=== PATIENT | male | born 1955 | race Caucasian/White ===

== ENCOUNTER 2021-04-27 12:31 | Emergency (ER) | payer MEDICARE, SELFPAY ==
[2021-04-27 12:49] VITALS: BP 124/79; PULSE 82; RESP 18; TEMP 36.8; O2SAT 99; BMI 23.3
--- NOTE | 2021-04-27 14:07 | ED_ITS ---
HPI - General Adult General: Chief complaint: General Medical Stated complaint: rash on both legs Time Seen by Provider: 04/27/21 14:07 Source: patient Mode of arrival: ambulatory Limitations: no limitations History of Present Illness: HPI narrative: 66-year-old male presents to the ER today with family member after [facility]. Caregiver reports patient has leg wounds which they have been caring for for quite some time while he was in custody. Patient reports this all started after a scabies outbreak several years ago. Patient reports he has very poor healing in his lower legs due to decreased blood flow. Patient reports he was having 3 times weekly wound care while in longterm. At this time he has no pain. They have not removed dressings since he returned home. Patient does not have a PCP or wound care set up. Onset (ago): year(s) Location: lower extremity Review of Systems General: Reports: 10 or more systems reviewed and unremarkable except in HPI a nd below Physical Exam Const: COMMON NORMALS: no acute distress, average body habitus and patient breana ented x3 GENERAL APPEARANCE: cooperative, comfortable and frail appearing Eye: COMMON NORMALS: conjunctivae normal CONJUNCTIVA: Yes conjunctivae normal Resp: COMMON NORMALS: normal respiratory effort EFFORT & INSPECTION: Yes able to speak in complete sentences Cardio: COMMON NORMALS: regular rate and regular rhythm RATE: regular rate RHYTHM: regular rhythm Extremity: OTHER: Patient walks with a cane. Patient has a brace on the right foot. Left leg is noted to have healing chronic wounds. There is no acute infection at this time. Patient is also noted to have probable PAD vs PVD Neuro: COMMON NORMALS: patient oriented x3, moves all extremities and no sensory deficits noted Psych: COMMON NORMALS: mental status grossly normal, Normal thought process present and cooperative THOUGHT PROCESS: Normal thought process present Skin: OTHER: Patient has a 1 cm x 1 cm healing wound on the left lower extremity. This appears chronic at this time with no acute infection noted. There are scarred lesions noted to the left leg. Course ED course: Patient presents to the ER today for left leg wound. Patient was receiving wound care [facility] times daily [facility] and got out on Wednesday. Patient is currently in an Unna boot. This was removed in ER today. Wounds appear to be healing well at this time. We will set patient up with follow-up wound care and primary care. Vital Signs: Vital signs: Vital Signs Temperature 98.1 F 04/27/21 14:36 Pulse Rate 79 04/27/21 14:36 Respiratory Rate 18 04/27/21 14:36 Blood Pressure 125/77 04/27/21 14:36 Pulse Oximetry 99 04/27/21 14:36 MDM - General Adult MDM Narrative: Medical decision making narrative: 66-year-old male presents to the ER today for chronic left leg wound. Patient recently was discharged from the [facility] where he has been for the last several years. Patient was receiving 3 times weekly wound care while there. Patient has a history of peripheral artery versus peripheral vascular disease in his lower legs. Patient reports these wounds have been there for several years. Patient is needing a primary care doctor in addition to wound care. Care management consult placed. Wounds covered with nonstick dressing and Rainer bandage at this time. Return to the ER with new or worsening symptoms. Patient verbalized understanding and is in agreement with the treatment plan. Critical Care Time Critical Care Time: Critical Care Time: No Discharge Plan Discharge Patient Disposition: Home Clinical Impression: Chronic wound of extremity Condition: Stable Discharge Orders: Discharge ED (Routine); Ordered 04/27/21 Ordered By: Dedra Perdue Discharge Diet: Usual diet Discharge Activity: Resume usual activity Patient Instructions: Opioid Safety Activity Restrictions/Additional Instructions: Leave dressing until follow-up with wound care. Establish a PCP and follow-up. Return to the ER with new or worsening symptoms. Coding Level of Care Code ED Bow Rehairer for Alex Johnson
[2021-04-27 14:36] VITALS: BP 125/77; PULSE 79; RESP 18; TEMP 36.7; O2SAT 99
--- NOTE | 2021-06-03 12:07 | DCPLANNER ---
Addendum entered by Zoila Ray 06/12/21 13:46: Patient had a follow up appointment scheduled with Wound Care - patient did attend appointment. Original Note: Patients daughter called case resolution specialist about a referral to Wound Care. retail office manager called Wound Care, spoke with Shannon, gave clinic patients information. A follow up appointment was scheduled for , June 05, 2021 at 8:[address] Naylor. retail office manager gave patients daughter the appointment information.
== END 2021-04-27 14:38 | disposition home or self-care (01) ==
PROVIDERS: Emergency Provider Physician Assistant
DX: S81.802A Unspecified open wound, left lower leg, initial encounter (principal); X58.XXXA Exposure to other specified factors, initial encounter
CPT/HCPCS: 99282

== ENCOUNTER 2021-06-06 10:17 | Outpatient (CLI) | payer SELFPAY | END 2021-06-06 10:18 | disposition home or self-care (01) | LOC: WOUND 10:19 | PROVIDERS: Visit Provider Surgery | DX: L97.822 Non-pressure chronic ulcer of other part of left lower leg with fat layer exposed (principal); J44.9 Chronic obstructive pulmonary disease, unspecified; Z87.891 Personal history of nicotine dependence | CPT/HCPCS: 11042; 99213 ==

== ENCOUNTER → 2021-06-10 11:38 | Outpatient (BNVA) | payer SELFPAY | PROVIDERS: Visit Provider Family Medicine | DX: I73.9 Peripheral vascular disease, unspecified (principal); S81.809A Unspecified open wound, unspecified lower leg, initial encounter; I10 Essential (primary) hypertension; J44.9 Chronic obstructive pulmonary disease, unspecified; R35.89 Other polyuria; N40.0 Benign prostatic hyperplasia without lower urinary tract symptoms | CPT/HCPCS: 80053; 80061; 83036; 84153; 85025; 86803; 87806 ==

== ENCOUNTER 2021-06-13 08:33 | Outpatient (CLI) | payer SELFPAY | END 2021-06-13 08:34 | disposition home or self-care (01) | LOC: WOUND 08:33 | PROVIDERS: Visit Provider Surgery | DX: L97.822 Non-pressure chronic ulcer of other part of left lower leg with fat layer exposed (principal); Z87.891 Personal history of nicotine dependence | CPT/HCPCS: 99212 ==

== ENCOUNTER 2021-08-12 06:18 | Outpatient (CLI) | payer SELFPAY ==
--- NOTE | 2021-08-12 06:26 | USCV_ITS ---
Fantasma Alcantar Age: 66 Gender: M : 1955 Exam Date: 08/12/2021 06:29 Ordering Phys: Arden Toro MD Technologist: DANIELLE [place] [facility] [place]: [place] pain Risk Factors: Previous Vascular Surgery: RIGHT LEFT BP: 145.0 / 90.00 BP: 150.0/ 90.00 0 0 Waveform Velocity (cm/s) Velocity (cm/s) Waveform Iliac Prox 95.9 Triphasic Iliac Mid 85.8 Triphasic Iliac Distal 109.4 Triphasic ENVIRONMENTAL MANAGER 92.6 Triphasic SFA Prox 90.3 Biphasic SFA Mid 71.8 Biphasic SFA Dist 71.8 Biphasic POP 48.0 Biphasic SUPERVISING DEPUTY 35.5 Biphasic DPA 35.3 Biphasic MOE 0.9 FINDINGS LT SUPERVISING DEPUTY 138 LT DPA 136 LT Brach 150/90 RT Brach 145/90 Slightly diminished resting MOE of 0.9 on the left side. CONCLUSIONS Features suggestive of mild peripheral artery disease on the left side. Dr Macrina Son MD FACC (Electronically Signed) Final Date: 12 Aug 2021 14:34 S
== END 2021-08-12 06:19 | disposition home or self-care (01) ==
LOC: RAD 06:19
PROVIDERS: Visit Provider Surgery
DX: L97.822 Non-pressure chronic ulcer of other part of left lower leg with fat layer exposed (principal); M79.662 Pain in left lower leg; I73.9 Peripheral vascular disease, unspecified
CPT/HCPCS: 93926

== ENCOUNTER 2021-09-06 11:20 | Emergency (ER) | payer SELFPAY ==
[2021-09-06 11:26] VITALS: BP 122/84; PULSE 83; RESP 16; TEMP 36.4; O2SAT 99; BMI 24.3
--- NOTE | 2021-09-06 13:12 | XRR_ITS ---
PROCEDURE INFORMATION: Exam: XR Chest Exam date and time: 09/06/2021 1:30 PM Age: 66 years old Clinical indication: Pain; Chest pressure; Additional info: Chest pain TECHNIQUE: Imaging protocol: XR of the chest. Views: 1 view. COMPARISON: No relevant prior studies available. FINDINGS: Lungs: Hyperinflated lungs. No consolidation. Pleural spaces: No pleural effusion. No pneumothorax. Heart/Mediastinum: No cardiomegaly. Bones/joints: Visualized osseous structures are intact. XR/XR chest 1V portable [id number] IMPRESSION: No acute findings.
[2021-09-06 13:16] VITALS: BP 110/84; PULSE 77; RESP 13; O2SAT 96
--- NOTE | 2021-09-06 13:36 | ECG_ITS ---
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 Measurements Intervals [place] Rate: 81 P: 81 SC: 134 QRS: -73 QRSD: 96 T: 85 QT: 358 QTc: 417 Interpretive Statements SINUS RHYTHM LEFT AXIS DEVIATION [QRS AXIS < -30] No previous ECG available for comparison Electronically Signed On 09-07-2021 20:38:38 CDT by Sai Garcia M.D. [email or web address] Therapeutics/store/OM/[id number]
[2021-09-06 13:40] LABS: Basophils # 0.1 10^3/uL (0.0-0.1); Basophils % 0.8 %; Eosinophils # 0.2 10^3/uL (0.0-0.8); Eosinophils % 1.7 %; Hematocrit 51.5 % (42.0-52.0); Hemoglobin 17.2 g/dL (11.7-16.6); Lymphocytes # 1.2 10^3/uL (0.8-4.8); Lymphocytes % 8.6 %; Mean Corpuscular HGB Conc 33.4 g/dL (30.0-36.0); Mean Corpuscular Hemoglobin 33.5 pg (28.0-34.0); Mean Corpuscular Volume 100.4 fl (80-94); Mean Platelet Volume 10.1 fL (7.4-10.4); Monocytes # 0.8 10^3/uL (0.2-0.9); Neutrophils # 11.27 10^3/uL (1.8-7.7); Neutrophils % 81.7 %; Nucleated Red Blood Cells % 0 %; Platelet Count 183 10^3/cmm (130-400); Red Blood Count 5.13 10^6/uL (4.1-5.3); Red Cell Distribution Width 12.4 % (12.1-15.1); White Blood Count 13.8 10^3/uL (4.0-10.0)
--- NOTE | 2021-09-06 13:40 | ED_ITS ---
HPI - Dizziness General: Chief Complaint: Dizziness Stated Complaint: dizzy spell; chest pain/heaviness Time Seen by Provider: 09/06/21 13:03 History of Present Illness: HPI Narrative: Patient comes in after having a syncopal episode today. States he was eating breakfast and he stood up. States he became lightheaded and passed out. States he has a history of syncope. States he has had a mild headache and sore throat today, as well as a cough which is not new for him. Associated symptoms: Denies chest pain, headache(s), nausea, palpitations or vomiting Associated neuro symptoms: Deny numbness in extremities Review of Systems Const: Denies: fever(s) or body aches Eyes: Denies: change in vision or blurry vision ENMT: Reports: throat pain and odynophagia Card: Denies: chest pain or palpitations Resp: Denies: dyspnea or productive cough GI: Denies: abdominal pain, nausea or vomiting : Denies: flank pain or dysuria Musc: Denies: neck pain or back pain Skin/Breast: Denies: rash or pruritus Neuro: Denies: headache(s) or numbness in extremities Psych: Denies: anxiety or change in appetite Endo: Denies: polyuria or excessive sweating PFSH ED PFSH: Social History Smoking and tobacco status: current some day smoker Alcohol intake: never Physical Exam Const: COMMON NORMALS: no acute distress, patient oriented x3, healthy appearing and alert HENMT: COMMON NORMALS: normocephalic and atraumatic HEAD & SCALP: normocephalic and atraumatic Eye: COMMON NORMALS: Equal, round and reactive pupils present and EOMs intact bilaterally PUPIL: Yes Equal, round and reactive pupils present Neck/C-Spine: COMMON NORMALS: full ROM and supple Resp: COMMON NORMALS: normal respiratory effort, No retractions and No use of accessory muscles Cardio: COMMON NORMALS: regular rate and regular rhythm RATE: regular rate RHYTHM: regular rhythm GI: COMMON NORMALS: Normal to inspection, nondistended, normoactive bowel sounds present, Soft to palpation and non-tender PALPATION: Yes Soft to palpation Back/Pelvis: COMMON NORMALS: thoracic and lumbar spine normal to inspection and no thoracic nor lumbar tenderness Extremity: COMMON NORMALS: normal to inspection and full ROM Neuro: COMMON NORMALS: patient oriented x3 SENSORIUM/ORIENTATION: Yes alert Psych: COMMON NORMALS: mental status grossly normal and cooperative Skin: COMMON NORMALS: no rashes or lesions noted and no wounds GENERAL SKIN EXAM: no rashes or lesions noted Course Vital Signs: Vital signs: Vital Signs Temperature 97.6 F 09/06/21 11:26 Pulse Rate 77 09/06/21 13:16 Respiratory Rate 13 09/06/21 13:16 Blood Pressure 110/84 09/06/21 13:16 Pulse Oximetry 96 09/06/21 13:16 MDM - Dizziness Medical Decision Making Patient comes in after having a syncopal episode today. States he was eating breakfast and he stood up. States he became lightheaded and passed out. States he has a history of syncope. States he has had a mild headache and sore throat today, as well as a cough which is not new for him. Will check labs, EKG, give IV fluids, and reassess. On reassessment I talked with the patient about the test results. Will discharge home at this time with precautions to return for worsening or changing symptoms. Lab Data : 09/06/21 13:25 09/06/21 13:25 Laboratory Results WBC 13.8 10^3/uL (4.0-10.0) H 09/06/21 13:25 RBC 5.13 10^6/uL (4.1-5.3) 09/06/21 13:25 Hgb 17.2 g/dL (11.7-16.6) H 09/06/21 13:25 Hct 51.5 % (42.0-52.0) 09/06/21 13:25 MCV 100.4 fl (80-94) H 09/06/21 13:25 MCH 33.5 pg (28.0-34.0) 09/06/21 13:25 MCHC 33.4 g/dL (30.0-36.0) 09/06/21 13:25 RDW 12.4 % (12.1-15.1) 09/06/21 13:25 Plt Count 183 10^3/cmm (130-400) 09/06/21 13:25 MPV 10.1 fL (7.4-10.4) 09/06/21 13:25 Neut % (Auto) 81.7 % 09/06/21 13:25 Lymph % (Auto) 8.6 % 09/06/21 13:25 [place] % (Auto) 6.0 % 09/06/21 13:25 Eos % (Auto) 1.7 % 09/06/21 13:25 Baso % (Auto) 0.8 % 09/06/21 13:25 Neut # (Auto) 11.27 10^3/uL (1.8-7.7) H 09/06/21 13:25 Lymph # (Auto) 1.2 10^3/uL (0.8-4.8) 09/06/21 13:25 [place] # (Auto) 0.8 10^3/uL (0.2-0.9) 09/06/21 13:25 Eos # (Auto) 0.2 10^3/uL (0.0-0.8) 09/06/21 13:25 Baso # (Auto) 0.1 10^3/uL (0.0-0.1) 09/06/21 13:25 Nucleated RBC % (auto) 0 % 09/06/21 13:25 Nucleated RBCs # 0.0 /100WBC 09/06/21 13:25 Sodium 138 mmol/L (136-145) 09/06/21 13:25 Potassium 4.4 mmol/L (3.5-5.1) 09/06/21 13:25 Chloride 99 mmol/L (98-107) 09/06/21 13:25 Carbon Dioxide 29 mmol/L (22-29) 09/06/21 13:25 Anion Gap 14.4 (5-19) 09/06/21 13:25 BUN 15 mg/dL (8-23) 09/06/21 13:25 Creatinine 0.8 mg/dL (0.7-1.2) 09/06/21 13:25 GFR Calculation 97.0 mL/min (90-130) 09/06/21 13:25 Glucose 120 mg/dL (65-115) H 09/06/21 13:25 Calculated Osmolality 288 mOsm/kg (285-295) 09/06/21 13:25 Calcium 9.5 mg/dL (8.5-10.5) 09/06/21 13:25 Total Bilirubin 0.3 mg/dL (0.15-1.2) 09/06/21 13:25 AST 20 U/L (0-40) 09/06/21 13:25 ALT 26 U/L (0-41) 09/06/21 13:25 Alkaline Phosphatase 101 IU/L (40-130) 09/06/21 13:25 Troponin T Baseline 10 ng/L (0-15) 09/06/21 13:25 Total Protein 7.5 g/dL (6.6-8.7) 09/06/21 13:25 Albumin 4.4 g/dL (3.5-5.2) 09/06/21 13:25 Globulin 3.1 g/dL (1.3-4.6) 09/06/21 13:25 Group A Strep Rapid Negative (Negative) 09/06/21 13:25 Discharge Plan Discharge Patient Disposition: Home Clinical Impression: Syncope Condition: Stable Prescriptions: No Action Anoro Ellipta 62.5-25 mcg/actuation blister with device 1 inh inhalation DAILY 0RF naproxen 500 mg tablet 500 mg PO BID PRN (Reason: pain) Qty: 60 2RF dutasteride 0.5 mg capsule 0.5 mg PO DAILY Qty: 30 5RF albuterol sulfate 90 mcg/actuation HFA aerosol inhaler 2 puff inhalation Q6H PRN (Reason: shortness of breath or wheezing) Qty: 8.5 2RF Rx Instructions: 340B tamsulosin 0.4 mg capsule 0.4 mg PO DAILY Qty: 90 1RF oxybutynin chloride 10 mg tablet extended release 24hr 10 mg PO DAILY Qty: 90 1RF spironolactone 100 mg tablet 100 mg PO DAILY Qty: 90 1RF hydroxyzine pamoate 25 mg capsule 25 mg PO DAILY Qty: 90 1RF hydroxyzine pamoate 100 mg capsule 100 mg PO DAILY Qty: 90 1RF Discharge Orders: Discharge ED (Routine); Ordered 09/06/21 Ordered By: Quirino Velazquez Referrals: Zafar Hernandez DO [Primary Care Provider] - Coding Level of Care Code ED Street Cleaning Equipment Operator for Chg Fwd Exam Comprehensive
[2021-09-06 13:42] LABS: Rapid Strep A Test Negative (Negative)
[2021-09-06] MEDS: sodium chloride 0.9% 1,000 ML 999 ML IV (13:43)
[2021-09-06 13:52] LABS: Alanine Aminotransferase 26 U/L (0-41); Albumin Level 4.4 g/dL (3.5-5.2); Alkaline Phosphatase 101 IU/L (40-130); Anion Gap 14.4 (5-19); Aspartate Amino Transferase 20 U/L (0-40); Blood Urea Nitrogen 15 mg/dL (8-23); Calcium 9.5 mg/dL (8.5-10.5); Carbon Dioxide 29 mmol/L (22-29); Chloride 99 mmol/L (98-107); Creatinine Clr Calc Pharmacy 94.2151; Globulin 3.1 g/dL (1.3-4.6); Glucose 120 mg/dL (65-115); Osmolality Calculated 288 mOsm/kg (285-295); Potassium 4.4 mmol/L (3.5-5.1); Sodium 138 mmol/L (136-145); Total Bilirubin 0.3 mg/dL (0.15-1.2); Total Protein 7.5 g/dL (6.6-8.7)
[2021-09-06 13:56] LABS: Troponin(5th) Baseline 10 ng/L (0-15)
[2021-09-06 15:22] VITALS: BP 140/97; PULSE 88; RESP 20; O2SAT 94
== END 2021-09-06 15:15 | disposition home or self-care (01) ==
PROVIDERS: Emergency Provider Emergency Medicine; PCP Family Medicine
DX: R55 Syncope and collapse (principal); R51.9 Headache, unspecified; J02.9 Acute pharyngitis, unspecified; R05.9 Cough, unspecified; R07.9 Chest pain, unspecified; F17.200 Nicotine dependence, unspecified, uncomplicated
CPT/HCPCS: 71045; 80053; 84484; 85025; 87081; 87880; 93005; 96360; 99284; J7030

== ENCOUNTER 2021-09-06 15:29 | Emergency (ER) | payer SELFPAY ==
--- NOTE | 2021-09-06 15:58 | CTR_ITS ---
PROCEDURE INFORMATION: Exam: CTA Chest With Contrast Exam date and time: 09/06/2021 4:38 PM Age: 66 years old Clinical indication: Shortness of breath and other: Passing out; Additional info: Concern for pe, falling hemoglobin TECHNIQUE: Imaging protocol: Computed tomographic angiography of the chest with contrast. 3D rendering (Not supervised by radiologist): MIP and/or 3D reconstructed images were created by the technologist. Radiation optimization: All CT scans at this facility use at least one of these dose optimization techniques: automated exposure control; mA and/or kV adjustment per patient size (includes targeted exams where dose is matched to clinical indication); or iterative reconstruction. Contrast material: OMNI 350; Contrast volume: 95 ml; Contrast route: INTRAVENOUS (IV); COMPARISON: CR (CHEST, ) 09/06/2021 4:15 PM RADIATION DOSE METRICS: Total DLP (mGy-cm): 620.1 FINDINGS: Pulmonary arteries: Normal. No pulmonary emboli. Aorta: There is focal fusiform aneurysm of the proximal descending thoracic aorta measuring 6.6 x 5.7 cm. Calcified and noncalcified atherosclerotic plaque noted within and around the aneurysm. No evidence of dissection flap. Lungs: Moderate emphysematous changes. No consolidation. Pleural spaces: Complex moderate volume left pleural effusion with increased Hounsfield units which is suggestive of blood products. No pneumothorax. Heart: No cardiomegaly. No pericardial effusion. Lymph nodes: Unremarkable. No enlarged lymph nodes. Bones/joints: No acute fracture. Soft tissues: Unremarkable. CT/CT angio chest PE protcl [id number] IMPRESSION: 1. No pulmonary emboli. 2. Focal fusiform aneurysmal dilation of the proximal descending thoracic aorta up to 6.6 cm. 3. Complex moderate volume left pleural effusion, a suspected hemothorax of unclear etiology. 4. Moderate emphysema. Findings were discussed with Quirino Velazquez at 09/06/2021 5:09 PM CDT.
--- NOTE | 2021-09-06 15:58 | XRR_ITS ---
PROCEDURE INFORMATION: Exam: XR Chest Exam date and time: 09/06/2021 4:15 PM Age: 66 years old Clinical indication: Shortness of breath and other: Post cpr; Additional info: SOB TECHNIQUE: Imaging protocol: XR of the chest. Views: 1 view. COMPARISON: CR (CHEST, ) 09/06/2021 1:30 PM FINDINGS: Lungs: Hyperinflated lungs. No consolidation. Pleural spaces: No pleural effusion. No pneumothorax. Heart/Mediastinum: No cardiomegaly. Bones/joints: Unremarkable. XR/XR chest 1V portable [id number] IMPRESSION: No acute findings.
[2021-09-06 15:59] LABS: ABG PCO2 61.4 mmHg (35-45); ABG PH Result 7.01 (7.35-7.45); Alveolar-Arterial Oxygen Gradi 70.7 mmHg (5-10); Arterial Blood Gas Hematocrit 33.4 % (42-52); Base Excess ABG -15.6 mmol/L (-2.0-2.0); Blood Gas Allen Test Pos; Blood Gas Operator Identificat ED; Blood Gas Sample Site Radial, right; Blood Gas Sample Type Arterial; Carboxyhemoglobin 0.7 %THgb (0.4-20.1); HCO3 ABG 15.5 mmol/L (22-26); HGB O2 Sat 91.1 % (95-100); Ionized Calcium Level - ABG 1.1 mmol/L (1.1-1.4); Oxygen Device NRB; Oxygen Saturation ABG 92.7; PO2 ABG 91.5 mmHg (80.0-100.0); Total Hemoglobin 10.9 g/dL (14-18)
--- NOTE | 2021-09-06 15:59 | ECG_ITS ---
[facility] Test Date: 2021-09-06 Pat Name: Fantasma Alcantar Department: Room: Gender: Male Receiving Teller: : 1955 Requested By: Quirino Velazquez Order Number: [id number] Wolfgang MD: Sai Garcia M.D. Measurements Intervals [place] Rate: 91 P: 74 CO: 120 QRS: 225 QRSD: 133 T: 51 QT: 397 QTc: 491 Interpretive Statements SINUS RHYTHM RIGHT AXIS DEVIATION [QRS AXIS > 100] RIGHT BUNDLE BRANCH BLOCK [120+ ms QRS DURATION, UPRIGHT V1, 40+ ms S IN I/aVL/V4/V5/V6] SEPTAL MYOCARDIAL INFARCTION , PROBABLY OLD [40+ ms Q WAVE IN V1/V2] Compared to ECG 09/06/2021 11:39:23 Right-axis deviation now present Right bundle-branch block now present Myocardial infarct finding now present Left-axis deviation no longer present Electronically Signed On 09-07-2021 20:31:16 CDT by Sai Garcia M.D. [id number]
[2021-09-06 16:00] VITALS: PULSE 136; RESP 22; O2SAT 98
--- NOTE | 2021-09-06 16:19 | PC.NURSE ---
Note delayed due to patient care. hotel front desk clerk called stated patient fell by bathroom, Jordan Hooker Daegon and Chirag RN went out there, patient picked up and placed on bed, patient appeared to have had a syncopal episode and then Nhung VANCE stated he had a 15 second seizure like activity, at this point patient was breathing. Patient then wheeled down the decker to ER room 11. At time of arrival to room 11, patient pulse became absent at 1531,compressions started at 1531, ambu bag in use on patient at appropriate rate, zoll pads applied to patient chest and back. Patient in PEA. 1533 1 dose of the 1 mg of epi given IV by Nhung VANCE. 1535 pulse check, patient has pulse. Pulse 120. 1538 EKG provided. Patient has non-rebreather on at this time. 1539 136 pulse, blood sugar 120, respirations 33 on his own, patient now has 2 large bore IV's placed, blood pressure unable to be obtained by monitor, blood pressure 60 over palpation, Dr. Velazquez at bedside, fluids infusing with pressure bag per verbal orders. 1542 140 pulse, 28 respirations. 1544 pulse 139, respirations 29. Patient placed on nasal canula at 6 liters. Patient oxygen at 98-100%.
--- NOTE | 2021-09-06 16:22 | CTR_ITS ---
PROCEDURE INFORMATION: Exam: CT Head Without Contrast Exam date and time: 09/06/2021 4:32 PM Age: 66 years old Clinical indication: Altered mental status/memory loss; Additional info: AMS TECHNIQUE: Imaging protocol: Computed tomography of the head without contrast. Radiation optimization: All CT scans at this facility use at least one of these dose optimization techniques: automated exposure control; mA and/or kV adjustment per patient size (includes targeted exams where dose is matched to clinical indication); or iterative reconstruction. COMPARISON: No relevant prior studies available. RADIATION DOSE METRICS: Total DLP (mGy-cm): 1162.96 FINDINGS: Brain: Normal. No hemorrhage. Unremarkable white matter. No mass effect. Cerebral ventricles: No ventriculomegaly. Paranasal sinuses: Visualized sinuses are unremarkable. No fluid levels. Mastoid air cells: Visualized mastoid air cells are well aerated. Bones/joints: Unremarkable. No acute fracture. Soft tissues: Unremarkable. CT/CT head wo con* [id number] IMPRESSION: No acute intracranial abnormality.
[2021-09-06 16:27] LABS: Basophils # 0.1 10^3/uL (0.0-0.1); Basophils % 0.5 %; Eosinophils # 0.1 10^3/uL (0.0-0.8); Eosinophils % 0.3 %; Hematocrit 33.5 % (42.0-52.0); Hemoglobin 10.7 g/dL (11.7-16.6); Lymphocytes # 2.1 10^3/uL (0.8-4.8); Mean Corpuscular HGB Conc 31.9 g/dL (30.0-36.0); Mean Corpuscular Volume 106.3 fl (80-94); Mean Platelet Volume 10.4 fL (7.4-10.4); Monocytes # 0.8 10^3/uL (0.2-0.9); Monocytes % 5.2 %; Neutrophils # 11.22 10^3/uL (1.8-7.7); Neutrophils % 75.8 %; Nucleated Red Blood Cells % 0 %; Platelet Count 161 10^3/cmm (130-400); Red Blood Count 3.15 10^6/uL (4.1-5.3); Red Cell Distribution Width 12.7 % (12.1-15.1); White Blood Count 14.8 10^3/uL (4.0-10.0)
--- NOTE | 2021-09-06 16:29 | PC.NURSE ---
Patient at CT, James zee RN with patient, portable hogshead opener placed on patient.
[2021-09-06] MEDS: iohexol 350 mg/mL 100 mL Btl IV (16:47)
[2021-09-06 17:00] LABS: Troponin(5th) Baseline 11 ng/L (0-15)
[2021-09-06 17:05] LABS: Reflex Lactate Order REFLEX LACTIC ORDERD
[2021-09-06 17:06] LABS: Alanine Aminotransferase 16 U/L (0-41); Albumin Level 2.5 g/dL (3.5-5.2); Alkaline Phosphatase 62 IU/L (40-130); Anion Gap 19.5 (5-19); Aspartate Amino Transferase 17 U/L (0-40); Blood Urea Nitrogen 14 mg/dL (8-23); Carbon Dioxide 18 mmol/L (22-29); Chloride 106 mmol/L (98-107); Globulin 1.7 g/dL (1.3-4.6); Glomerular Filtration Rate 84.7 mL/min (90-130); Glucose 279 mg/dL (65-115); Magnesium 1.9 mg/dL (1.7-2.3); NT Pro B Type Natriuretic Pept 83 pg/mL (0-125); Osmolality Calculated 301 mOsm/kg (285-295); Potassium 3.5 mmol/L (3.5-5.1); Sodium 140 mmol/L (136-145); Total Bilirubin 0.2 mg/dL (0.15-1.2); Total Protein 4.2 g/dL (6.6-8.7)
--- NOTE | 2021-09-06 17:59 | ECG_ITS ---
[facility] Test Date: 2021-09-06 Pat Name: Fantasma Alcantar Department: Room: Gender: Male Merchandise Flow Team Leader: : 1955 Requested By: Quirino Velazquez Order Number: [id number] Wlofgang MD: Sai Garcia M.D. Measurements Intervals [place] Rate: 136 P: 83 [place]: 127 QRS: 229 QRSD: 118 T: 48 QT: 283 QTc: 426 Interpretive Statements SINUS TACHYCARDIA RIGHT AXIS DEVIATION [QRS AXIS > 100] PATTERN CONSISTENT WITH PULMONARY DISEASE RIGHT BUNDLE BRANCH BLOCK [120+ ms QRS DURATION, UPRIGHT V1, 40+ ms S IN I/aVL/V4/V5/V6] SEPTAL MYOCARDIAL INFARCTION , OF INDETERMINATE AGE [40+ ms Q WAVE IN V1/V2] Compared to ECG 09/06/2021 11:39:23 Right-axis deviation now present Right bundle-branch block now present Myocardial infarct finding now present Sinus rhythm no longer present Left-axis deviation no longer present Electronically Signed On 09-07-2021 20:38:29 CDT by Sai Garcia M.D. [email or web address] Technologiescle[facility].[place]/store/[id number]
--- NOTE | 2021-09-06 18:02 | ED_ITS ---
HPI - CPR General: Chief Complaint: Cardiac Arrest/CPR Stated Complaint: SYNCOPE Time Seen by Provider: 09/06/21 15:58 History of Present Illness: Patient comes in from the waiting room in cardiac arrest. The patient was just discharged from the department after being here for a syncopal episode which he states he has all the time. Upon discharge the patient got out to the waiting room and collapsed. When he was brought to the back we were unable to palpate a pulse and CPR was initiated. After multiple rounds of CPR he regained a pulse and began to talk to us. He is awake at this time. He is hypotensive and complaining of chest pain. Review of Systems General: Reports: Other (Unable to obtain due to mental status) PFS ED PFSH: Social History Smoking and tobacco status: current some day smoker Alcohol intake: never Physical Exam Const: OTHER: Patient is pale and unresponsive, and active cardiac arrest HENMT: COMMON NORMALS: normocephalic and atraumatic HEAD & SCALP: normocephalic and atraumatic GI: COMMON NORMALS: Soft to palpation PALPATION: Yes Soft to palpation OTHER: Nondistended Extremity: COMMON NORMALS: normal to inspection Skin: COMMON NORMALS: no rashes or lesions noted and no wounds GENERAL SKIN EXAM: no rashes or lesions noted Course Vital Signs: Vital signs: Vital Signs Pulse Rate 136 H 09/06/21 16:00 Respiratory Rate 22 H 09/06/21 16:00 Pulse Oximetry 98 09/06/21 16:00 MDM - Cardiac Arrest/CPR Medical Decision Making Patient comes in from the waiting room in cardiac arrest. The patient was just discharged from the department after being here for a syncopal episode which he states he has all the time. Upon discharge the patient got out to the waiting room and collapsed. When he was brought to the back we were unable to palpate a pulse and CPR was initiated. After multiple rounds of CPR he regained a pulse and began to talk to us. He is awake at this time. He is hypotensive and complaining of chest pain. We will check a CT scan, labs, give IV fluids, EKG, and reassess. 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 This is concerning for blood as his hemoglobin dropped from 17- 10. He is hypotensive, and I am concerned for dissecting thoracic aneurysm although radiology is unable to identify a flap. We gave him a couple liters of IV fluids which sustained his blood pressure around 90 systolic, however he continued to drop so we started him on a unit of blood uncrossed matched. I discussed the case with [facility] and we will transfer by air emergently for CT surgery consult. We will send a second unit of uncrossed match blood with the patient. Lab Data : 09/06/21 16:00 09/06/21 16:00 Radiology Impressions Chest CTA 09/06/21 15:58 IMPRESSION: 1. No pulmonary emboli. 2. Focal fusiform aneurysmal dilation of the proximal descending thoracic aorta up to 6.6 cm. 3. Complex moderate volume left pleural effusion, a suspected hemothorax of unclear etiology. 4. Moderate emphysema. Findings were discussed with Quirino Velazquez at 09/06/2021 5:09 PM CDT. Chest X-Ray 09/06/21 15:58 IMPRESSION: No acute findings. Head CT 09/06/21 16:22 IMPRESSION: No acute intracranial abnormality. Laboratory Results WBC 14.8 10^3/uL (4.0-10.0) H 09/06/21 16:00 RBC 3.15 10^6/uL (4.1-5.3) L 09/06/21 16:00 Hgb 10.7 g/dL (11.7-16.6) L D 09/06/21 16:00 Hct 33.5 % (42.0-52.0) L D 09/06/21 16:00 MCV 106.3 fl (80-94) H D 09/06/21 16:00 MCH 34.0 pg (28.0-34.0) 09/06/21 16:00 MCHC 31.9 g/dL (30.0-36.0) 09/06/21 16:00 RDW 12.7 % (12.1-15.1) 09/06/21 16:00 Plt Count 161 10^3/cmm (130-400) 09/06/21 16:00 MPV 10.4 fL (7.4-10.4) 09/06/21 16:00 Neut % (Auto) 75.8 % 09/06/21 16:00 Lymph % (Auto) 14.0 % 09/06/21 16:00 [place] % (Auto) 5.2 % 09/06/21 16:00 Eos % (Auto) 0.3 % 09/06/21 16:00 Baso % (Auto) 0.5 % 09/06/21 16:00 Neut # (Auto) 11.22 10^3/uL (1.8-7.7) H 09/06/21 16:00 Lymph # (Auto) 2.1 10^3/uL (0.8-4.8) 09/06/21 16:00 [place] # (Auto) 0.8 10^3/uL (0.2-0.9) 09/06/21 16:00 Eos # (Auto) 0.1 10^3/uL (0.0-0.8) 09/06/21 16:00 Baso # (Auto) 0.1 10^3/uL (0.0-0.1) 09/06/21 16:00 Nucleated RBC % (auto) 0 % 09/06/21 16:00 Nucleated RBCs # 0.0 /100WBC 09/06/21 16:00 Specimen Type Arterial 09/06/21 15:57 Sample Site Radial, right 09/06/21 15:57 ABG pH 7.01 (7.35-7.45) L* 09/06/21 15:57 ABG pCO2 61.4 mmHg (35-45) H* 09/06/21 15:57 ABG pO2 91.5 mmHg (80.0-100.0) 09/06/21 15:57 ABG HCO3 15.5 mmol/L (22-26) L 09/06/21 15:57 ABG O2 Saturation 92.7 09/06/21 15:57 ABG Base Excess -15.6 mmol/L (-2.0-2.0) L 09/06/21 15:57 [place] Test Pos 09/06/21 15:57 A-a O2 Gradient 70.7 mmHg (5-10) H 09/06/21 15:57 Hematocrit 33.4 % (42-52) L 09/06/21 15:57 Hgb O2 Saturation 91.1 % (95-100) L 09/06/21 15:57 Carboxyhemoglobin 0.7 %THgb (0.4-20.1) 09/06/21 15:57 Methemoglobin 1.0 % (0.4-1.5) 09/06/21 15:57 Total Hemoglobin 10.9 g/dL (14-18) L 09/06/21 15:57 Sodium 140.0 mmol/L (131-143) 09/06/21 15:57 Potassium 3.0 mmol/L (3.5-5.0) L 09/06/21 15:57 Glucose 300.0 mg/dL (70-115) H 09/06/21 15:57 Ionized Calcium 1.1 mmol/L (1.1-1.4) 09/06/21 15:57 O2 Delivery Device Nrb 09/06/21 15:57 O2 Liters/Min 15.0 % 09/06/21 15:57 FiO2 100.0 % 09/06/21 15:57 Electrical Engineering Professor ID Ed 09/06/21 15:57 Sodium 140 mmol/L (136-145) 09/06/21 16:00 Potassium 3.5 mmol/L (3.5-5.1) 09/06/21 16:00 Chloride 106 mmol/L (98-107) 09/06/21 16:00 Carbon Dioxide 18 mmol/L (22-29) L 09/06/21 16:00 Anion Gap 19.5 (5-19) H 09/06/21 16:00 BUN 14 mg/dL (8-23) 09/06/21 16:00 Creatinine 0.9 mg/dL (0.7-1.2) 09/06/21 16:00 GFR Calculation 84.7 mL/min (90-130) L 09/06/21 16:00 Glucose 279 mg/dL (65-115) H 09/06/21 16:00 Calculated Osmolality 301 mOsm/kg (285-295) H 09/06/21 16:00 Lactic Acid 8.0 mmol/L (0.5-2.2) H* 09/06/21 16:00 Calcium 7.0 mg/dL (8.5-10.5) L 09/06/21 16:00 Magnesium 1.9 mg/dL (1.7-2.3) 09/06/21 16:00 Total Bilirubin 0.2 mg/dL (0.15-1.2) 09/06/21 16:00 AST 17 U/L (0-40) 09/06/21 16:00 ALT 16 U/L (0-41) 09/06/21 16:00 Alkaline Phosphatase 62 IU/L (40-130) 09/06/21 16:00 Troponin T Baseline 11 ng/L (0-15) 09/06/21 16:00 NT-Pro-B Natriuret Pep 83 pg/mL (0-125) 09/06/21 16:00 Total Protein 4.2 g/dL (6.6-8.7) L D 09/06/21 16:00 Albumin 2.5 g/dL (3.5-5.2) L 09/06/21 16:00 Globulin 1.7 g/dL (1.3-4.6) 09/06/21 16:00 Critical Care Time Critical Care Time: Critical Care Time: Yes Total Critical Care Time: 75 Attestation: This case had a high probability of a clinically significant, sudden, or life threatening deterioration of this patient's condition which required my full and direct attention, intervention and personal management. Discharge Plan Discharge Patient Disposition: Xfer Short-Term Hosp Clinical Impression: Ruptured thoracic aortic aneurysm Condition: Stable Prescriptions: No Action Anoro Ellipta 62.5-25 mcg/actuation blister with device 1 inh inhalation DAILY 0RF naproxen 500 mg tablet 500 mg PO BID PRN (Reason: pain) Qty: 60 2RF dutasteride 0.5 mg capsule 0.5 mg PO DAILY Qty: 30 5RF albuterol sulfate 90 mcg/actuation HFA aerosol inhaler 2 puff inhalation Q6H PRN (Reason: shortness of breath or wheezing) Qty: 8.5 2RF Rx Instructions: 340B tamsulosin 0.4 mg capsule 0.4 mg PO DAILY Qty: 90 1RF oxybutynin chloride 10 mg tablet extended release 24hr 10 mg PO DAILY Qty: 90 1RF hydroxyzine pamoate 25 mg capsule 25 mg PO DAILY Qty: 90 1RF hydroxyzine pamoate 100 mg capsule 100 mg PO DAILY Qty: 90 1RF Referrals: Zafar Hernandez DO [Primary Care Provider] - Coding Level of Care Code ED [facility] Psychiatrist for Chg Fwd
--- NOTE | 2021-09-06 18:27 | PC.NURSE ---
One dose of Epinephrine 0.1mg/ml was wasted with PINKY Beard witnessed at 1832
--- NOTE | 2021-09-06 18:33 | PC.NURSE ---
See nurses note and triage note by PINKY Beard Pt taken to CT on portable vital monitoring, fluids continued. Bag ran out in CT and verbal orders received from Dr. Middleton for continuation of fluids. Second bag started pressure infused. Pt returned to room and placed on room monitoring. Pt verbally indicated to PINKY Hooker that he did not want CPR performed again. This nurse verified with pt that those were his wishes with Dr. Middleton present in room. After infusion of second bag of fluids, Pts blood pressure started to drop. Dr. Middleton notified and verbal orders received to infuse a third bag at 999 ml/hr. Dr middleton gave orders to prep for Arterial line. Nhung VANCE present and assisted with insertion and set up. [employer] crew arrived in room on standby pending acceptance from [facility]. Arterial line inserted into left radial artery by Dr. Middleton and connected to monitor. Line secured. Orders received from Dr. Middelton for emergency release of two units of blood for administration. Blood verified with PINKY Hooker and unit number [id number] started at 1753. Acceptance from [facility] obtained and final report given to flight crew. Blood unit number [id number] given to flight crew for administration enroute. Report called to [facility] ED with report given to Kenneth Jaime RN via telephone. final vitals 91/59 100% o2 on 3l via nj P.100 resp 26.
--- NOTE | 2021-09-06 18:50 | PC.NURSE ---
Vitals signs printed to be scanned into chart.
--- NOTE | 2021-09-06 18:51 | PC.NURSE ---
This nurse provided direct, one on one critical pt care to pt for three hours.
[2021-09-06 19:46] LABS: Adenovirus Not Detected (NOT DETECT); Chlamydia Pneumoniae Not Detected (NOT DETECT); Coronavirus 229E,HKU1,NL63,OC4 Not Detected (NOT DETECT); Human Metapneumovirus Not Detected (NOT DETECT); Human Rhinovirus/Enterovirus Not Detected (NOT DETECT); Influenza A Not Detected (NOT DETECT); Influenza A H1 Not Detected (NOT DETECT); Influenza A H1-2009 Not Detected (NOT DETECT); Influenza A H3 Not Detected (NOT DETECT); Influenza B Not Detected (NOT DETECT); Mycoplasma Pneumoniae Not Detected (NOT DETECT); Parainfluenza Virus Type 1 Not Detected (NOT DETECT); Parainfluenza Virus Type 2 Not Detected (NOT DETECT); Parainfluenza Virus Type 3 Not Detected (NOT DETECT); Parainfluenza Virus Type 4 Not Detected (NOT DETECT); Respiratory Syncytial Virus A Not Detected (NOT DETECT); Respiratory Syncytial Virus B Not Detected (NOT DETECT); SARS-COV-2 Not Detected (NOT DETECT)
[2021-09-06 19:55] LABS: Influenza A Not Detected (NOT DETECT); Influenza A H1 Not Detected (NOT DETECT); Influenza A H1-2009 Not Detected (NOT DETECT); Influenza A H3 Not Detected (NOT DETECT); Influenza B Not Detected (NOT DETECT); Results from Genmark
[2021-09-10 19:26] LABS: Glucose Point of Care 120 mg/dL (70-110)
== END 2021-09-06 18:05 | disposition short-term general hospital (02) ==
PROVIDERS: Emergency Provider Emergency Medicine; PCP Family Medicine
DX: I71.1 Thoracic aortic aneurysm, ruptured (principal); I46.2 Cardiac arrest due to underlying cardiac condition; I95.9 Hypotension, unspecified; R71.0 Precipitous drop in hematocrit; Z20.822 Contact with and (suspected) exposure to COVID-19
CPT/HCPCS: 36416; 36430; 70450; 71045; 71275; 80051; 80053; 82330; 82805; 82962; 83605; 83735; 83880; 84484; 85025; 86850; 86900; 86920; 87631; 87635; 92950; 93005; 99291; 99292; P9016; Q9967